=== PATIENT | male | born 1990 | race Caucasian/White ===

== ENCOUNTER 2018-10-30 12:00 | Inpatient (IN) | payer SELFPAY ==
--- NOTE | 2018-10-30 12:23 | ED ---
Psychiatric Complaint - HPI Summary HPI Summary: This pt is a 28 y/o male presenting to [facility] via police officers for a mental health evaluation after being found by with a gun to his chin. Per police officers, pt has had recent stress. Police report pt had an argument with his a couple of days ago. Additionally pt and were evicted from their house and have 5 days to move out. 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 Today went out to run errands and when she came back inside the house she found the patient pointing a gun to his chin. was unable to convince the patient to put down the gun and she called the police. Pt denies intention to hurt himself with the gun. He denies taking any medications he shouldn't take. Pt denies feeling depressed, and states "feeling more pressured." He admits to feeling anxious. Denies HI. Per dairy quality assurance officer, pt has 2 guns and one of them has been cut by patient's friend. Patient is concerned he might be arrested and stated he does not know what the legal length of the shot gun should be, per police. Denies drug, alcohol, tobacco use. - History Of Current Complaint Chief Complaint: EDMentalHealth Time Seen by Provider: 10/30/18 12:12 Hx Obtained From: Patient Onset/Duration: Lasting Days, Still Present Timing: Days Severity Currently: Moderate Aggravating Factor(s): Recent Stress Alleviating Factor(s): Nothing Related History: Positive For: Prior Psychiatric Issues Has Suicidal: Reports: Demonstrates Gesture. Denies: Thoughts, With A Plan Has Homicidal: Denies: Thoughts, With A Plan Recent Stressor(s): argument with , evicted from house, lately has had no work - Allergies/Home Medications Allergies/Adverse Reactions: Allergies Allergy/AdvReac Type Severity Reaction Status Date / Time No Known Allergies Allergy Verified 01/03/15 12:45 PMH/Surg Hx/FS Hx/Imm Hx Endocrine/Hematology History: Denies: Hx Diabetes, Hx Thyroid Disease Cardiovascular History: Denies: Hx Hypertension Respiratory History: Denies: Hx Asthma, Hx Chronic Obstructive Pulmonary Disease (COPD) GI History: Denies: Hx Ulcer Infectious Disease History: No Infectious Disease History: Denies: Hx Clostridium Difficile, Hx Hepatitis, Hx Human Immunodeficiency Virus (HIV), Hx of Known/Suspected MRSA, Hx Shingles, Hx Tuberculosis, Hx Known/ Suspected VRE, Hx Known/Suspected VRSA, History Other Infectious Disease, Traveled Outside the [place] in Last 30 Days - Family History Known Family History: Negative: Cardiac Disease, Hypertension, Diabetes Family History: Father with pituitary problems associated with behavioral changes. - Social History Alcohol Use: Rare Substance Use Type: Reports: None Smoking Status (MU): Never Smoked Tobacco Have You Smoked in the Last Year: No Review of Systems Negative: Fever, Chills Cardiovascular: Negative Respiratory: Negative Gastrointestinal: Negative Positive: Anxious, Depressed. Negative: Other - NEGATIVE: SI or HI. All Other Systems Reviewed And Are Negative: Yes Physical Exam - Summary Physical Exam Summary: Constitutional: Well-developed, Well-nourished, Alert. (-) Distressed Skin: Warm, Dry HENT: Normocephalic; Atraumatic Eyes: Conjunctiva normal Neck: Musculoskeletal ROM normal neck. (-) JVD, (-) Stridor, (-) Tracheal deviation Cardio: Rhythm regular, rate normal, Heart sounds normal; Intact distal pulses; The pedal pulses are 2+ and symmetric. Radial pulses are 2+ and symmetric. (-) Murmur Pulmonary/Chest wall: Effort normal. (-) Respiratory distress, (-) Wheezes, (-) Rales Abd: Soft, (-) tenderness, (-) Distension, (-) Guarding, (-) Rebound Musculoskeletal: (-) Edema Lymph: (-) Cervical adenopathy Neuro: Alert, Oriented x3 Psych: He admits to anxiety and depression but denies SI or HI. Triage Information Reviewed: Yes Vital Signs On Initial Exam: Initial Vitals Temp Pulse Resp BP Pulse Ox 98.1 F 99 18 142/100 97 10/30/18 12:04 10/30/18 12:04 10/30/18 12:04 10/30/18 12:04 10/30/18 12:04 Vital Signs Reviewed: Yes - Lisa Coma Scale Best Eye Response: 4 - Spontaneous Best Motor Response: 6 - Obeys Commands Best Verbal Response: 5 - Oriented Coma Scale Total: 15 Diagnostics - Vital Signs Vital Signs Temp Pulse Resp BP Pulse Ox 10/30/18 12:04 98.1 F 99 18 142/100 97 - Laboratory Result Diagrams: 10/30/18 12:51 07/22/19 12:51 Lab Statement: Any lab studies that have been ordered have been reviewed, and results considered in the medical decision making process. - Radiology Orbit XR Radiology Interpretation Completed By: Radiologist Summary of Radiographic Findings: IMPRESSION: No radiopaque foreign body is identified. Dr. Londono has reviewed this report. - CT Brain CT CT Interpretation Completed By: Radiologist Summary of CT Findings: IMPRESSION: No acute/significant intracranial normality. Dr. Londono has reviewed this report. - Additional Comments Diagnostic Additional Comments: MRI Brain, as read by radiologist IMPRESSION: 1. No brain mass is identified. 2. No acute intracranial normality. Dr. Londono has reviewed this report. Re-Evaluation - Re-Evaluation First Eval Re-Evaluation Time: 13:52 Comment: Pt is medically cleared. Course/Dx - Course Assessment/Plan: Pt is a 28 y/o male presenting to [facility] via police officers for a mental health evaluation after being found by with a gun to his chin. 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 Lab results are unremarkable except for positive amphetamines. Pt was medically cleared. Brain MRI impression: 1. No brain mass is identified. 2. No acute intracranial normality. Pt had a mental health evaluation and his case was reviewed by Dr. Ortez, psychiatrist. Per mental health ged instructor, Dr. Ortez will admit the pt on an involuntary status with dx depressive disorder. - Differential Dx/Clinical Impression Provider Diagnosis: Depressive disorder Discharge - Sign-Out/Discharge Documenting (check all that apply): Patient Departure - Admit to [facility] Patient Received Moderate/Deep Sedation with Procedure: No - Discharge Plan Condition: Stable Disposition: PSYCHIATRIC FACILITY-[facility] - Billing Disposition and Condition Condition: STABLE Disposition: Psychiatric Facility [facility] - Attestation Statements Document Initiated by Scribe: Yes Documenting Scribe: Rosie Joe Provider For Whom Scribe is Documenting (Include Credential): Marianne Neal MD Scribe Attestation: Rosie Carrillo, scribed for Marianne Bynum MD on 10/30/18 at 1920. Scribe Documentation Reviewed: Yes Provider Attestation: The documentation as recorded by the scribe, Rosie Joe accurately reflects the service I personally performed and the decisions made by me, Marianne Bynum MD Status of Scribe Document: Viewed
[2018-10-30 12:55] LABS: Urine Appearance Cloudy; Urine Bilirubin Negative (Negative); Urine Blood Negative (Negative); Urine Color Yellow; Urine Glucose Negative (Negative); Urine Ketones Negative (Negative); Urine Nitrite Negative (Negative); Urine Protein Negative (Negative); Urine Specific Gravity 1.017 (1.010-1.030); Urine Urobilinogen Negative (Negative)
[2018-10-30 13:06] LABS: ABS Basophils 0.1 10^3/ul (0-0.2); ABS Eosinophils 0.1 10^3/ul (0-0.6); ABS Lymphocytes 2.9 10^3/ul (1.0-4.8); ABS Monocytes 0.8 10^3/ul (0-0.8); Eosinophil % 1.7 %; Hematocrit 44 % (42-52); Hemoglobin 15.1 g/dL (14.0-18.0); Lymphocyte % 36.4 %; Mean Corpuscular HGB Conc 35 g/dL (31-36); Mean Corpuscular Hemoglobin 30 pg (27-31); Mean Corpuscular Volume 86 fL (80-94); Mean Platelet Volume 7.7 fL (7.4-10.4); Nucleated Red Blood Cells % 0.2; Platelet Count 235 10^3/uL (150-450); Red Blood Count 5.08 10^6 /uL (4.18-5.48); Red Cell Distribution Width 14 % (10-15); White Blood Count 7.9 10^3/uL (3.5-10.8)
[2018-10-30 13:11] LABS: Urine Benzodiazepine Screen None Detected (None Detect); Urine Opiates Screen None Detected (None Detect)
[2018-10-30 13:15] LABS: ALT 54 U/L (7-52); AST 34 U/L (13-39); Albumin 4.2 g/dL (3.2-5.2); Albumin/Globulin Ratio 1.4 (1-3); Alkaline Phosphatase 55 U/L (34-104); Anion Gap 5 mmol/L (2-11); BUN/Creatinine Ratio 9.8 (8-20); Blood Urea Nitrogen 10 mg/dL (6-24); CO2 Carbon Dioxide 28 mmol/L (22-32); Calcium 9.8 mg/dL (8.6-10.3); Chloride 108 mmol/L (101-111); EGFR Non-African American 87.6 (>60); Glucose 95 mg/dL (70-100); Potassium 4.3 mmol/L (3.5-5.0); Sodium 141 mmol/L (135-145); Total Protein 7.2 g/dL (6.4-8.9)
[2018-10-30 13:46] LABS: Acetaminophen < 15 mcg/mL; Alcohol < 10 mg/dL (<10); Salicylate < 2.50 mg/dL (<30)
[2018-10-30 13:56] LABS: TSH (Thyroid Stimulating Horm) 1.22 mcIU/mL (0.34-5.60)
[2018-10-30] MEDS ORDERED: Gadoteridol* (CONTRAST) 279.3 MG/ML 10 ML IV ONE (15:23)
[2018-10-30] MEDS ORDERED: hydrOXYzine HCL TAB* 50 MG PO PRN (23:22)
[2018-10-30] MEDS ORDERED: Acetaminophen TAB* 325 MG PO PRN (23:22)
[2018-10-30] MEDS ORDERED: Al Hydrox/Mg Hydrox/Simet LIQ* 30 ML UDC PO PRN (23:22)
[2018-10-31 06:52] LABS: HDL Cholesterol 38.4 mg/dL
[2018-10-31] MEDS: Vitamin THERAPEUTIC TAB PO SCH (09:15)
[2018-10-31] MEDS ORDERED: buPROPion SR TAB.SR* 100 MG PO ONE (12:19)
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
[2018-11-01] MEDS: Vitamin THERAPEUTIC TAB PO SCH (08:20)
--- NOTE | 2018-11-01 09:56 | PN ---
Subjective - Subjective Date of Service: 11/01/18 Service Type: 70320 Hosp care 35 min high complexity Subjective: Nursing Report: Patient was visible on unit, no chemical restraints or PRNs. Slept overnight without incident. He is attending group activities. CC: "Fine" Patient was seen and evaluated in the common room. The patient reported he feels safe on the unit and visted with his parents during lunch time. He reported having adequate appetite and sleep. The patient reports attending and participating in day groups. Per nursing no behavioral issues or overnight events reported. Patient reported that he is tolerating medications without side effects. Patient reported that he smokes and struggles with depressed mood and at times resorts to using meth to combat low energy. Objective - General Observations Appearance: Neat Appears Stated Age: Yes Stature: WNL Posture: WNL Eye Contact: Average Behavior/Activity: WNL - Interaction Observations Attitude Towards Examiner: Cooperative Stated Mood: Dysphoric Affect: Blunted Speech Pattern/Tone: Clear Thought Process: Coherent Perception: WNL Thought Content: WNL Hallucination Type: None Delusion Type: None - Cognitive Function Orientation: A&O x 4 Level of Consciousness: Awake Cognition: WNL - Medication Compliance Cooperative with Inpatient Medication Regimen: Yes - Group Participation Participates in Group Activities: Yes Assessment - Assessment Merits Inpatient Hospitalization: For Immediate Safety Clinical Impression: 28 year old male was admitted after putting a gun to his head and telling his girlfriend that he was going to end his life. Plan - Plan Treatment Plan: Name: MAHIN TIERNEY Birthdate: 1990 [id number] #Q30 minute observation. # The patient requires psychiatric inpatient admission at this time to assure safety, receive treatment and work toward stabilization. # Obtain collateral information from parents # Collaboration with Crew Lead Kayleigh Bianchi Substance Abuse resources offered and he declined # Safe act completed # Guns with police department Tobacco use disorder: nicotine supplement offered and put in place. #Start wellbutrin 150mg daily #Goals before discharge include: To eliminate/ reduce suicidal ideation Sodium 141 mmol/L (135-145) 10/30/18 12:51 Potassium 4.3 mmol/L (3.5-5.0) 10/30/18 12:51 BUN 10 mg/dL (6-24) 10/30/18 12:51 Creatinine 1.02 mg/dL (0.67-1.17) 10/30/18 12:51 Hemoglobin A1c 5.6 % (4.0-5.6) 10/31/18 06:22 Calcium 9.8 mg/dL (8.6-10.3) 10/30/18 12:51 AST 34 U/L (13-39) 10/30/18 12:51 ALT 54 U/L (7-52) H 10/30/18 12:51 Triglycerides 62 mg/dL 10/31/18 06:22 Cholesterol 131 mg/dL 10/31/18 06:22 LDL Cholesterol 80 mg/dL 10/31/18 06:22 Vital Signs Temp Pulse Resp BP Pulse Ox 98.1 F 77 16 126/89 98 11/01/18 08:00 11/01/18 08:00 11/01/18 12:22 11/01/18 08:00 11/01/18 08:00 Continued Medication Management: Continue Outpt Medication Medications: Current Medications Acetaminophen (Tylenol Tab*) 650 mg PO Q4H PRN PRN Reason: PAIN or TEMP > 101 F Al Hydrox/Mg Hydrox/Simethicone (Maalox Plus*) 30 ml PO Q4H PRN PRN Reason: INDIGESTION Hydroxyzine HCl (Atarax Tab*) 50 mg PO Q6H PRN PRN Reason: ANXIETY Multivitamins (Theragran Tab*) 1 tab PO DAILY DALIA Last Admin: 11/01/18 08:20 Dose: Not Given - Discharge Plan Discharge Plan: Inpatient Hospitalization Outpatient Program: [facility]
[2018-11-01] MEDS: BuPROPion XL* 150 MG TAB.XL PO SCH (14:44)
[2018-11-02] MEDS: BuPROPion XL* 150 MG TAB.XL PO SCH (10:02)
[2018-11-02] MEDS: Vitamin THERAPEUTIC TAB PO SCH (10:02)
--- NOTE | 2018-11-02 15:19 | PN ---
Subjective - Subjective Date of Service: 11/02/18 Service Type: 53016 Hosp care 35 min high complexity Subjective: Nursing Report: Patient was visible on unit, Slept overnight without incident. He is attending group activities. CC: "Good" Patient was seen and evaluated in the common room. The patient reported he feels safe on the unit. He retracted his 72 hour notice. He reported having adequate appetite and sleep. The patient reports attending and participating in day groups. Per nursing no behavioral issues or overnight events reported. Patient reported that he is tolerating medications without side effects. 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 Objective - General Observations Appearance: Neat Appears Stated Age: Yes Stature: WNL Posture: WNL Eye Contact: Average Behavior/Activity: WNL - Interaction Observations Attitude Towards Examiner: Cooperative Stated Mood: Euthymic Affect: Blunted Speech Pattern/Tone: Clear Thought Process: Coherent Perception: WNL Thought Content: WNL Hallucination Type: None Delusion Type: None - Cognitive Function Orientation: A&O x 4 Level of Consciousness: Awake - Medication Compliance Cooperative with Inpatient Medication Regimen: Yes - Group Participation Participates in Group Activities: Yes Assessment - Assessment Merits Inpatient Hospitalization: For Immediate Safety Clinical Impression: 28 year old male was admitted after putting a gun to his head and telling his girlfriend that he was going to end his life. Plan - Plan Treatment Plan: Name: MAHIN TIERNEY Birthdate: 1990 [id number] #Q30 minute observation with staff pass # The patient requires psychiatric inpatient admission at this time to assure safety, receive treatment and work toward stabilization. # Family meeting took place today # Collaboration with Diagnostic Tech Kayleigh Bianchi Substance Abuse resources offered and he declined # Safe act completed # Retracted 72 hour notice. # Confirmed with family that firearms given to police department Tobacco use disorder: nicotine supplement offered and put in place. #Continue wellbutrin 150mg daily denied seizures or eating disorder. #Goals before discharge include: To eliminate/ reduce suicidal ideation Tentative Discharge Tuesday Vital Signs Temp Pulse Resp BP Pulse Ox 98.0 F 78 16 130/82 98 11/02/18 08:00 11/02/18 08:00 11/02/18 13:10 11/02/18 08:00 11/02/18 08:00 Sodium 141 mmol/L (135-145) 10/30/18 12:51 Potassium 4.3 mmol/L (3.5-5.0) 10/30/18 12:51 BUN 10 mg/dL (6-24) 10/30/18 12:51 Creatinine 1.02 mg/dL (0.67-1.17) 10/30/18 12:51 Hemoglobin A1c 5.6 % (4.0-5.6) 10/31/18 06:22 Calcium 9.8 mg/dL (8.6-10.3) 10/30/18 12:51 AST 34 U/L (13-39) 10/30/18 12:51 ALT 54 U/L (7-52) H 10/30/18 12:51 Triglycerides 62 mg/dL 10/31/18 06:22 Cholesterol 131 mg/dL 10/31/18 06:22 LDL Cholesterol 80 mg/dL 10/31/18 06:22 Continued Medication Management: Continue Outpt Medication Medications: Current Medications Acetaminophen (Tylenol Tab*) 650 mg PO Q4H PRN PRN Reason: PAIN or TEMP > 101 F Al Hydrox/Mg Hydrox/Simethicone (Maalox Plus*) 30 ml PO Q4H PRN PRN Reason: INDIGESTION Bupropion HCl (Wellbutrin Xl *) 150 mg PO DAILY [facility] Last Admin: 11/02/18 10:02 Dose: 150 mg Hydroxyzine HCl (Atarax Tab*) 50 mg PO Q6H PRN PRN Reason: ANXIETY Multivitamins (Theragran Tab*) 1 tab PO DAILY [facility] Last Admin: 11/02/18 10:02 Dose: 1 tab - Discharge Plan Discharge Plan: Inpatient Hospitalization Outpatient Program: [facility]
[2018-11-03] MEDS: Vitamin THERAPEUTIC TAB PO SCH (08:39)
[2018-11-03] MEDS: BuPROPion XL* 150 MG TAB.XL PO SCH (08:39)
--- NOTE | 2018-11-03 11:50 | PN ---
Subjective - Subjective Date of Service: 11/03/18 Service Type: 54374 Hosp care 35 min high complexity Subjective: Nursing Report: Patient was visible on unit, Slept overnight without incident. He is attending group activities. CC: "Fine" Patient was seen and evaluated in the common room. The patient reported he feels safe on the unit. He is looking forward to discharge. He reported having adequate appetite and sleep. The patient reports attending and participating in day groups. Per nursing no behavioral issues or overnight events reported. Patient reported that he is tolerating medications without side effects. Patient looks forward to moving out of his old place and building a house. Objective - General Observations Appearance: Neat Appears Stated Age: Yes Stature: WNL Posture: WNL Eye Contact: Average Behavior/Activity: WNL - Interaction Observations Attitude Towards Examiner: Cooperative Stated Mood: Euthymic Affect: Full Speech Pattern/Tone: Clear Thought Process: Coherent Perception: WNL Thought Content: WNL Hallucination Type: None Delusion Type: None - Cognitive Function Orientation: A&O x 4 Level of Consciousness: Awake - Medication Compliance Cooperative with Inpatient Medication Regimen: Yes - Group Participation Participates in Group Activities: Yes Assessment - Assessment Merits Inpatient Hospitalization: For Immediate Safety Clinical Impression: 28 year old male was admitted after putting a gun to his head and telling his girlfriend that he was going to end his life. Plan - Plan Treatment Plan: Name: MAHIN TIERNEY Birthdate: 1990 [id number] #Q30 minute observation with staff pass # The patient requires psychiatric inpatient admission at this time to assure safety, receive treatment and work toward stabilization. # Parents confirmed Baseline # Collaboration with Sleeve Separator Kayleigh Bianchi Substance Abuse resources offered and he declined # Safe act completed # Retracted 72 hour notice. # Confirmed with family that firearms given to police department Tobacco use disorder: nicotine supplement offered and put in place. #Continue wellbutrin 150mg daily denied seizures or eating disorder. #Goals before discharge include: To eliminate/ reduce suicidal ideation Tentative Discharge Tuesday Sodium 141 mmol/L (135-145) 10/30/18 12:51 Potassium 4.3 mmol/L (3.5-5.0) 10/30/18 12:51 BUN 10 mg/dL (6-24) 10/30/18 12:51 Creatinine 1.02 mg/dL (0.67-1.17) 10/30/18 12:51 Hemoglobin A1c 5.6 % (4.0-5.6) 10/31/18 06:22 Calcium 9.8 mg/dL (8.6-10.3) 10/30/18 12:51 AST 34 U/L (13-39) 10/30/18 12:51 ALT 54 U/L (7-52) H 10/30/18 12:51 Triglycerides 62 mg/dL 10/31/18 06:22 Cholesterol 131 mg/dL 10/31/18 06:22 LDL Cholesterol 80 mg/dL 10/31/18 06:22 Vital Signs Temp Pulse Resp BP Pulse Ox 98.7 F 77 16 141/83 99 11/03/18 08:00 11/03/18 08:00 11/03/18 13:12 11/03/18 08:00 11/03/18 08:00 Continued Medication Management: Continue Outpt Medication Medications: Current Medications Acetaminophen (Tylenol Tab*) 650 mg PO Q4H PRN PRN Reason: PAIN or TEMP > 101 F Al Hydrox/Mg Hydrox/Simethicone (Maalox Plus*) 30 ml PO Q4H PRN PRN Reason: INDIGESTION Bupropion HCl (Wellbutrin Xl *) 150 mg PO DAILY [facility] Last Admin: 11/03/18 08:39 Dose: 150 mg Hydroxyzine HCl (Atarax Tab*) 50 mg PO Q6H PRN PRN Reason: ANXIETY Multivitamins (Theragran Tab*) 1 tab PO DAILY [facility] Last Admin: 11/03/18 08:39 Dose: 1 tab - Discharge Plan Discharge Plan: Inpatient Hospitalization Outpatient Program: [facility]
[2018-11-04] MEDS: Vitamin THERAPEUTIC TAB PO SCH (08:16)
[2018-11-04] MEDS: BuPROPion XL* 150 MG TAB.XL PO SCH (08:16)
[2018-11-05] MEDS: Vitamin THERAPEUTIC TAB PO SCH (12:12)
[2018-11-05] MEDS: BuPROPion XL* 150 MG TAB.XL PO SCH (12:13)
--- NOTE | 2018-11-05 14:54 | PN ---
Subjective - Subjective Date of Service: 11/05/18 Subjective: Mahin endorses improving mood despite disrupted sleep, absence of suicidal ideation or side effects from prescribed Buproprion. He reports feeling eager for discharge home today. Per staff, he has been mostly seclusive to his room. Objective - General Observations Appearance: Neat Appears Stated Age: Yes Stature: WNL Posture: WNL Eye Contact: Average Behavior/Activity: WNL - Interaction Observations Attitude Towards Examiner: Defensive Stated Mood: Euthymic Affect: Full Speech Pattern/Tone: Clear, Normal Volume Thought Process: Coherent, Goal Directed Perception: WNL Thought Content: WNL Hallucination Type: None Delusion Type: None - Cognitive Function Orientation: A&O x 4 Level of Consciousness: Alert Cognition: WNL Estimated Intelligence: Normal Insight: Difficulty Acknowledging Presence of Psyciatric Problems Judgment Within Normal Limits: Yes - Medication Compliance Cooperative with Inpatient Medication Regimen: Yes - Group Participation Participates in Group Activities: Yes Assessment - Assessment Clinical Impression: 28 year old male was admitted after putting a gun to his head and telling his girlfriend that he was going to end his life. He is stabilizing in this structured setting. Plan - Plan Treatment Plan: Name: MAHIN TIERNEY Birthdate: 1990 [id number] #Q30 minute observation with staff pass # The patient requires psychiatric inpatient admission at this time to assure safety, receive treatment and work toward stabilization. # Parents confirmed Baseline # Collaboration with Narrow Gauge Engineer Kayleigh Bianchi Substance Abuse resources offered and he declined # Safe act completed # Retracted 72 hour notice. # Confirmed with family that firearms given to police department Tobacco use disorder: nicotine supplement offered and put in place. #Continue wellbutrin 150mg daily denied seizures or eating disorder. #Goals before discharge include: To eliminate/ reduce suicidal ideation Tentative Discharge Tuesday Sodium 141 mmol/L (135-145) 10/30/18 12:51 Potassium 4.3 mmol/L (3.5-5.0) 10/30/18 12:51 BUN 10 mg/dL (6-24) 10/30/18 12:51 Creatinine 1.02 mg/dL (0.67-1.17) 10/30/18 12:51 Hemoglobin A1c 5.6 % (4.0-5.6) 10/31/18 06:22 Calcium 9.8 mg/dL (8.6-10.3) 10/30/18 12:51 AST 34 U/L (13-39) 10/30/18 12:51 ALT 54 U/L (7-52) H 10/30/18 12:51 Triglycerides 62 mg/dL 10/31/18 06:22 Cholesterol 131 mg/dL 10/31/18 06:22 LDL Cholesterol 80 mg/dL 10/31/18 06:22 Vital Signs Temp Pulse Resp BP Pulse Ox 98.7 F 77 16 141/83 99 11/03/18 08:00 11/03/18 08:00 11/03/18 13:12 11/03/18 08:00 11/03/18 08:00 Medications: Current Medications Acetaminophen (Tylenol Tab*) 650 mg PO Q4H PRN PRN Reason: PAIN or TEMP > 101 F Al Hydrox/Mg Hydrox/Simethicone (Maalox Plus*) 30 ml PO Q4H PRN PRN Reason: INDIGESTION Bupropion HCl (Wellbutrin Xl *) 150 mg PO DAILY [facility] Last Admin: 11/05/18 12:13 Dose: 150 mg Hydroxyzine HCl (Atarax Tab*) 50 mg PO Q6H PRN PRN Reason: ANXIETY Multivitamins (Theragran Tab*) 1 tab PO DAILY [facility] Last Admin: 11/05/18 12:12 Dose: 1 tab - Discharge Plan Discharge Plan: Outpatient Follow Up Outpatient Program: Private Clinician(s) - ANAM ARIA Deras
[2018-11-06] MEDS: BuPROPion XL* 150 MG TAB.XL PO SCH (08:08)
[2018-11-06] MEDS: Vitamin THERAPEUTIC TAB PO SCH (08:08)
[2018-11-06 09:01] VITALS: BP 120/80
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
== END 2018-11-06 11:45 | disposition home or self-care (01) | DRG 881 ==
LOC: ED 12:00 → BSU 17:22
PROVIDERS: ADMIT Psychiatry & Neurology Psychiatry; ATTEND Psychiatry & Neurology Psychiatry
DX: F32.9 Major depressive disorder, single episode, unspecified (principal); R45.851 Suicidal ideations; F15.90 Other stimulant use, unspecified, uncomplicated; F12.90 Cannabis use, unspecified, uncomplicated; Z72.0 Tobacco use
CPT/HCPCS: 36415; 70030; 70450; 70553; 80053; 80061; 80307; 80320; 80329; 81003; 83036; 84443; 85025; 99222; 99233; 99238; 99284; A9270-GY; A9579; G0480